=== PATIENT | male | born 1960 | race Caucasian/White ===

== ENCOUNTER 2018-02-06 15:47 | Emergency (ER) | payer OTHER ==
[2018-02-06] MEDS ORDERED: NICOTINE 21 MG/24 HR PATCH TD ONE (16:04)
[2018-02-06] MEDS ORDERED: OLANZapine DISINTEGR 5 MG TAB ONE (16:27)
[2018-02-06] MEDS ORDERED: GABAPENTIN 100 MG CAP PO ONE (19:23)
[2018-02-06] MEDS ORDERED: TAMSULOSIN HCL 0.4 MG CAP PO ONE (21:17)
--- NOTE | 2018-02-06 22:43 | EDPHY ---
HPI/HX/ROS/PE/MDM Narrative: CHIEF COMPLAINT: M1 hold HPI: The patient is a 57-year-old male with history of alcohol abuse who was brought to the emergency department on an M1 hold secondary to suicide ideation. The patient has been feeling depressed for approximately 1 week and had a plan to take tranquilizers in order to kill himself. He denies toxic ingestion. He does admit to significant alcohol use. REVIEW OF SYSTEMS: Aside from elements discussed in the HPI, a comprehensive 10-point review of systems was reviewed and is negative. Limited secondary to alcohol use. PMH: Alcoholism, depression SOCIAL HISTORY: Admits to alcohol use. Denies drug abuse. PHYSICAL EXAM: General: Patient is appears intoxicated. Smells of alcohol. ENT: Eyes are normal to inspection. ENT inspection normal. Pupils are mid position and reactive bilaterally. Neck: Normal inspection. Full range of motion. Respiratory: No respiratory distress. Breath sounds normal bilaterally. Cardiovascular: Regular rate and rhythm. Normal heart sounds. Neuro: No focal motor or sensory deficits. Psychiatric: Admits to suicidal ideation, denies homicidal ideation under ( Skip Dickson) ED Course: Patient is medically clear. Mental health evaluation pending sober evaluation. Patient signed out to Dr. Coburn at 11pm. (Skip Dickson) MDM: 0519AM: Patient sleeping. NAD. Vss. Here with SI. 0646AM: Patient was seen and evaluated by mental health [facility]. Patient is medically cleared and also off of his M1 hold. It has been terminated by mental health. He is not suicidal. Contracts for safety. He does not want hurt himself or anybody else. He is eager for discharge. He will be given follow-up resources. Additionally understands return emergency room if he has any worsening symptoms questions or concerns thoughts of wanting to harm self or anybody else. (Obed Coburn) - Data Points Laboratory Results: Laboratory Results 02/06/18 16:03 02/06/18 16:03 Medications Given: Discontinued Medications Alprazolam (Xanax) 1 mg PO EDNOW ONE Stop: 02/07/18 00:03 Last Admin: 02/07/18 00:05 Dose: 1 mg Gabapentin (Neurontin) 100 mg PO EDNOW ONE Stop: 02/06/18 19:24 Last Admin: 02/06/18 19:24 Dose: 100 mg Nicotine (Nicoderm Cq) 21 mg TD EDNOW ONE Stop: 02/06/18 16:05 Last Admin: 02/06/18 16:19 Dose: 21 mg Nicotine (Nicoderm Cq) 21 mg TD EDNOW ONE Stop: 02/07/18 00:15 Last Admin: 02/07/18 00:15 Dose: 21 mg General Time Seen by Provider: 02/06/18 15:48 Initial Vital Signs: Initial Vital Signs Temperature (C) 36.7 C 02/06/18 15:56 Heart Rate 116 H 02/06/18 15:56 Respiratory Rate 18 02/06/18 15:56 Blood Pressure 157/94 H 02/06/18 15:56 O2 Sat (%) 94 02/06/18 15:56 O2 Delivery Mode Room Air Allergies/Adverse Reactions: No Known Allergies Allergy (Unverified 02/06/18 15:55) Home Medications: Medication Instructions Recorded Gabapentin 02/06/18 Tamsulosin HCl 02/06/18 Departure - Departure Disposition: Home, Routine, Self-Care Clinical Impression: Alcoholism Condition: Good Instructions: Abuse of Alcohol (ED) Additional Instructions: 1. Return to the ER if you have worsening symptoms, if you have thoughts of harming yourself or anyone else. 2. Please follow up with the resources you were given today. Referrals: NONE *PRIMARY CARE P,. [Primary Care Provider] - As per Instructions [facility] [Clinic] - As per Instructions
[2018-02-07] MEDS: ALPRAZolam 0.25 MG TAB PO ONE ×2 (00:05→00:13)
[2018-02-07] MEDS ORDERED: NICOTINE 21 MG/24 HR PATCH TD ONE (00:14)
[2018-02-07 06:57] VITALS: BP 134/56
--- NOTE | 2018-02-07 08:02 | ASMTTCLDSP ---
TLC Discharge Disposition Disposition: Answers: Discharge If Answers: Yes DISCHARGED: Patient/family given suicide hotline info & SAMHSA brochure? Disposition Notes: Notes: Pt stated commitment or ability to keep self safe, denied thoughts of self harm or harm to others. Pt was future focused, wanting to get his passport renewed so that he can fly back to [place] on 02/21/18. Pt was given local hotline information and SAMHSA brochure After an Attempt. Discharge Concerns/Recommendations: Notes: In consultation with [facility] ED physician, Obed Coburn MD, Dr. Coburn concurred that pt does not appear to meet 27-65 criteria requiring psychiatric hospitalization as pt does not appear to be an imminent risk of harm to self/others/gravely disabled due to a mental illness condition. Dr. Coburn provided verbal order read back vacating M1 hold at 0645 hrs. Was patient given the Answers: Not applicable Inpatient Behavioral Health Prohibited Belongings List while in the ED? Psychiatrist vacating M1 Obed Coburn MD Hold: Date and time M1 hold 02/07/2018 06:45 AM vacated (time format is hh:mm): Type of Hold: Answers: M1/72-hour Hold Hold initiated by: Answers: Police Date Signed: 02/07/2018 08:02 AM Electronically Signed By:Emerson Abarca
--- NOTE | 2018-02-07 08:02 | ASMTTLCEVL ---
TLC Evaluation - Basic Information Evaluation Start Date and 02/07/2018 05:45 AM Time Hospital Status Answers: M1 Hold 72-hr M1 Hold Start Date 02/06/2018 04:00 PM and Time Patient statement Notes: I was surprised when they told me what my BAL level was. I made a phone call to the hotline and said that I was upset about my pending divorce and that I was planning on taking a couple of my tranquilizers. Then shortly thereafter, 6 police officers showed up at my house. Radhika been on tranquilizers since I was 19 yo related to a rough plane landing at that age which caused panic attacks afterwards. I dont want to kill myself. I have excellent providers and healthcare back in [place] where my other home is at. I have a plane ticket to fly back there on 02/21/18. My of 28 years, Jacinta, informed me back on 12/23/17 that she wanted a separation and then a week later, I was served with divorce papers. I have to appear in divorce court on 02/19/18 so we can settle these matters and I can go back to [place] where Radhika lived many years and grew up there. I can ensure my own safety if permitted to leave the hospital. I dont want to kill myself. I want to get my passport updated so I can fly back to [place] at the end of the month. Narrative Notes: Pt is a 57 yo, recently , self-employed, male, with reported long history of alcohol use disorder, severe, generalized anxiety disorder with panic attacks, and benzodiazepine use disorder, severe, brought to [facility] on M1 hold which noted: Responded to above address. Respondent stated that he had been suicidal for about a week. Planned on taking tranquilizers to kill himself. Respondent was drunk at time of contact. Upon medical clearance and sobriety, MH evaluation was conducted. Pt appeared unclean, unkempt. He was alert and oriented X 4. He was cooperative throughout the interview. He had clear sensorium. He denied having suicidal ideation/intent/plans to harm self and was future focused on getting his passport renewed by the end of the month so that he can fly back to his residence in [place] on 02/21/18. He denied any history of or recent/current homicidal ideation. He denied having any hallucinations. His thought processes were linear and logical. His mood was euthymic and affect was somewhat subdued. He appeared to be a reliable historian and responded appropriately to interview questions. Diagnosis History Notes: Alcohol use disorder, severe, generalized anxiety disorder with panic attacks, and benzodiazepine use disorder, severe. Prior suicide attempts Notes: Pt denied any past history of suicide attempts. Prior hospitalizations Notes: Pt denied any past history of psychiatric hospitalizations. He reported having several brief medical admissions to detox from alcohol. Treatment Responses Notes: N/A. History of violence Notes: Pt denied any past history of aggression/violence. Therapist: None currently. Pt reported he had seen a counselor through [place] a couple of times in [place] and one time in [place] at the [facility]. Psychiatrist: None. Medications (name, dosage, route, freq uency) Notes: Xanax 1 mg PO PRN anxiety; Neurontin 100 mg PO HS. Pt was administered the following medications in the ED: Xanax 1 mg po at 0005 hrs, Neurontin 100 mg po at 1924 hrs, and Nicoderm Cq 21 mg at 1619 and 0015 hrs. Allergies/Reaction Notes: NKDA. Sleep Notes: Pt reported having chronic insomnia relieved only by taking his sleeping pills Neurontin. Appetite Notes: Pt reported decrease in appetite since separation from on 12/23/17. Medical/Surgical history Notes: Pt reported having had pneumonia twice. He reported having a vasectomy. Broken bones from soccer injuries years ago. Substance use history (frequency, intensity, his tory, duration) Notes: Pt reported first trying alcohol at age 11. He reported that his father had alcohol problems and when growing up in [place] where there is no minimum age laws for alcohol, his father would give him beer while they played chess together on the porch. 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 Pt stated that access to hard liquor in [place] is more difficult than it is to get beer. Pt reported he drinks several beers and liquor daily. BAL upon arrival was .323 at 1603 hrs. Pt reported he has never used marijuana. He reported that at age 19, while flying on a business trip, he experienced a very rough plane landing which lead to his having panic attacks and generalized anxiety and has been on tranquilizers (Xanax) for most of my life. Pt reported he tries not to take them, but typically takes up to three Xanax 1 mg po daily. Pt reported that he smokes 3 packs of cigarettes daily. He denied any other illicit substance use history. Family composition Notes: Pt reported that his father at age 92. His mother is 91, doing well and resides in [place] in her house that is next door to [facility] house in [place]. Pt reported he has two sisters around the age of 68 that he has no contact with for many years. Need for family Answers: No participation in patient's care Family psychiatric/substance abuse history Notes: Pt reported that his father consumed alcohol excessively. Developmental history Notes: Pt reported he was born and grew up in [place]. He denied any childhood history of TBIs, LOC or concussions. He denied any childhood history of physical, emotional or sexual abuse/trauma, however, he was introduced to alcohol by his father at age 11 and often drank together with father during his childhood. Abuse concerns Answers: None Marital status/children Notes: Pt reported having been to , Jacinta, for the past 28 years. Pt reported that his was interested in being more active and [place], whereas pt reported that he has fear of heights and other disagreements. Pt reported that they had been on a 3 day getaway when she informed pt on 12/23/17 that she wanted to split up. A week later, his filed for divorce papers. Pt stated that he has a divorce court date set on 02/19/18. Pt reported that he and his do not have any children together. Pt has two grown children, a son and a daughter from pts previous marriage who live in the [place] area. Pt reported that for the past few months, at the request of his who works as a legal specialist in an office near [facility], to help take care of his wifes mother who recently had a fall in which she broke her hip, shoulder, and has Macular Degeneration. Pt reported that he would take his [id number] to [place] to get her meds etc. while she would socialize with others in the store. Living situation Notes: Pt and have been living in their [place] residence for the past 3 years. Sexual history/orientation Notes: Not active. Heterosexual. Peer support/family strengths Notes: Pt reported having no local supports outside of still having daily communications and emails with his . Education level/history Notes: Pt reported he graduated high school, later attended some college classes, then self-taught in learning about writing software programs. Work history Notes: Pt reported having worked in [employer], worked with [employer] and [employer] before the [facility] [employer] became known as a [employer]. He reported he traveled frequently with that job, would often have to entertain clients and alcohol was frequently consumed as part of entertaining clients. 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 He reported that 3 years ago he sold off a major part of that business but still receives substantial income from the part of the business he retained. 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 Notes: None. Legal Notes: Pt denied any arrest/legal history. Samaritan/Spiritual Notes: Pt reported being raised Rastafarian, but is not practicing. Leisure Notes: Pt reported he enjoys playing with his Kinyarwanda Santana dog and computers. Patient's strengths Answers: Artistic/Creative/Musical (Please select at least TWO strengths): Funny/Using Humor Honest Intelligent TLC Evaluation - Mental Status Exam Appearance: Answers: Appropriate Unclean Unkempt Disheveled Eye Contact: Answers: Good/Direct Mood: Answers: Euthymic Affect: Answers: Appropriate Calm Cheerful Congruent w/ Mood Subdued Behavior: Answers: Appropriate Cooperative Fatigued Speech: Answers: Relevant Logical Clear Coherent Thought Process: Answers: Organized Oriented Alert Goal Oriented Intact Insight: Answers: Fair Judgement: Answers: Fair Depression Answers: Diminished Pleasure Signs/Symptoms: Anxiety Signs/Symptoms Answers: Generalized Anxiety Panic Attacks Hallucinations: Answers: None Current Stage of Change Answers: Precontemplation Pt reported to have Answers: No suicidal/self-injuring ideation/behavior? Pt reported to be making Answers: No suicidal/self-injuring threats? Pt reported to have Answers: No aggression/assault ideation/behavior? Pt reported to be making Answers: No aggression/assault threats? Pt exhibits inability to Answers: No care for self/grave disability? Ideation/behavior is Answers: No chronic? Patient has a specific Answers: No plan? Pt has access to means to Answers: No execute the plan? Ideation involves Answers: No serious/lethal intent? Ideation has Answers: No delusional/hallucinatory content? History of Answers: No suicidal/self-injuring ideation, behavior, or threats? History of Answers: No aggressive/assaultive ideation, behavior, or threats? History of serious Answers: No physical harm to self/others while in treatment setting? TLC Evaluation - Suicide/Homicide Risk Suicide Risk Factors: Answers: < 20 or > 40 Years of Age Alcohol/Heavy Drug Use Anxiety/Panic, Severe Global Insomnia Inadequate Social Support Intoxication Lack of Social Support Legal Difficulties Problems with Partner Homicide/violence risk Answers: None factors: Current Suicidal Answers: No Ideation? Current Suicidal Ideation Answers: No in the Past 48 Hours? Current Suicidal Ideation Answers: No in the Past Month? Current Suicidal Answers: No Ideation, Worst Ever? Suicide Internal Answers: Absence of Psychosis Protective Factors: Herman with Stress Samaritan Beliefs Suicide External Answers: Responsibility to Pets Protective Factors: Ranking of patient's Answers: Low suicidal risk: Ranking of patient's Answers: Low homicidal risk: TLC Evaluation - Wrap-up BDI Total Score: 0 BDI Question #2 Score: 0 BDI Question #9 Score: 0 BSS Total Score: 0 AXIS I Diagnosis (include DSM-V and ICD-10 codes), must also be entered in [employer], which is the source of truth. Notes: Alcohol Intoxication, with use disorder, severe 303.00 (F10.229) Sedative, Hypnotic, or Anxiolytic-Related disorder, severe 304.10 (F13.20) Generalized Anxiety Disorder 300.02 (F41.1) In consultation with [facility] ED physician, Obed Coburn MD, Dr. Coburn concurred that pt does not appear to meet 27-65 criteria requiring psychiatric hospitalization as pt does not appear to be an imminent risk of harm to self/others/gravely disabled due to a mental illness condition. Dr. Coburn provided verbal order read back vacating M1 hold at 0645 hrs. Evaluation End Date and 02/07/2018 08:00 AM Time (HH:MM): Date Signed: 02/07/2018 08:01 AM Electronically Signed By:Emerson Abarca
== END 2018-02-07 06:56 | disposition home or self-care (01) ==
PROC: GZ11ZZZ Psychological Tests, Personality and Behavioral (ICD-10-PCS; principal; 2018-02-06)
DX: F10.20 Alcohol dependence, uncomplicated (principal); R45.851 Suicidal ideations
CPT/HCPCS: 80305; G0480